=== PATIENT | female | born 1990 | race Caucasian/White ===

== ENCOUNTER 2021-10-12 07:29 | Emergency (ER) | payer BC | END 2021-10-12 08:23 | disposition home or self-care (01) | LOC: MW.ED 07:29 | DX: J02.0 Streptococcal pharyngitis (principal); Z87.891 Personal history of nicotine dependence; Z86.16 Personal history of COVID-19; Z79.899 Other long term (current) drug therapy; Z88.0 Allergy status to penicillin; Z88.1 Allergy status to other antibiotic agents; Z90.49 Acquired absence of other specified parts of digestive tract | CPT/HCPCS: 87651-QW; 99283 ==

== ENCOUNTER 2022-06-18 14:40 | Inpatient (IN) | payer BC ==
[2022-06-18] MEDS ORDERED: Tranexamic Acid 1,000 MG in Sodium Chloride 0.9% 100 ML IV PRN (14:55)
[2022-06-18] MEDS ORDERED: Butorphanol 1 MG/ML SDV IVPUSH PRN (14:55)
[2022-06-18] MEDS ORDERED: Water For Irrigation,Sterile 1,000 ML Container IRR PRN (14:55)
[2022-06-18] MEDS ORDERED: Methylergonovine 0.2 MG/1 ML Amp IM PRN (14:55)
[2022-06-18] MEDS ORDERED: Carboprost Tromethamine 250 MCG/1 ML Amp IM PRN (14:55)
[2022-06-18] MEDS ORDERED: Sodium Chloride 0.9% 10 ML Syringe FLUSH PRN (14:55)
[2022-06-18] MEDS ORDERED: Lidocaine 1% 50 ML MDV INJECT PRN (14:55)
[2022-06-18] MEDS ORDERED: Sodium Chloride 0.9% 2.5 ML Syringe FLUSH PRN (14:55)
[2022-06-18] MEDS ORDERED: Sodium Chloride 0.9% 20 ML SDV IV PRN (14:55)
[2022-06-18] MEDS ORDERED: Misoprostol 200 MCG Tab PO PRN (14:55)
[2022-06-18] MEDS ORDERED: Terbutaline 1 MG/ML SDV SUBCUT PRN (14:55)
[2022-06-18] MEDS ORDERED: Oxytocin/0.9 % Sodium Chloride 30 UNIT/500 ML BAG IV SCH ×2 (15:00)
[2022-06-18] MEDS ORDERED: Lactated Ringers 1,000 ML IV SCH (15:00)
[2022-06-18] MEDS ORDERED: Ropivacaine/PF 400 MG/200 ML PCA ONE (17:15)
[2022-06-18] MEDS ORDERED: ePHEDrine 50 MG/ML SDV IVPUSH PRN ×2 (17:23)
[2022-06-18] MEDS ORDERED: Phenylephrine HCl In 0.9% NaCl 1 MG/10 ML Vial IVPUSH PRN (17:23)
[2022-06-18] MEDS ORDERED: Ropivacaine HCl/PF 400 MG in Premix Bag 1 BAG EPIDUR SCH (17:30)
[2022-06-18] MEDS ORDERED: Phenylephrine HCl In 0.9% NaCl 1 MG/10 ML Vial IVPUSH SCH (17:30)
[2022-06-18] MEDS ORDERED: Docusate Sodium 100 MG Cap PO PRN (18:35)
[2022-06-18] MEDS ORDERED: oxyCODONE 5 MG Tab PO PRN (18:35)
[2022-06-18] MEDS ORDERED: Benzocaine/Menthol 20%-0.5% Spray 78 GM Cannister TOP PRN (18:35)
[2022-06-18] MEDS ORDERED: Acetaminophen 500 MG Tab PO PRN ×2 (18:35)
[2022-06-18] MEDS ORDERED: Ibuprofen 800 MG Tab PO PRN (18:35)
[2022-06-18] MEDS ORDERED: Witch Hazel Medicated Pads 40/Jar TOP PRN (18:35)
[2022-06-18] MEDS ORDERED: Lanolin 100% Cream 7 GM Tube TOP PRN (18:35)
[2022-06-18] MEDS ORDERED: Bisacodyl 10 MG Supp RECTAL PRN (18:35)
[2022-06-18] MEDS ORDERED: Ibuprofen 400 MG Tab PO PRN (18:35)
== END 2022-06-19 20:40 | disposition home or self-care (01) | DRG 560 ==
LOC: MW.OBCHECK 14:40 → MW.OB 14:41 → MW.OBCHECK 14:54 → MW.OB 14:55 → OBSVTOIN 18:10 → MW.OB 20:57
PROVIDERS: ADMIT Obstetrics & Gynecology; ATTEND Obstetrics & Gynecology
PROC: 10E0XZZ Delivery of Products of Conception, External Approach (ICD-10-PCS; principal; 2022-06-18)
PROC: 3E0R3BZ Introduction of Anesthetic Agent into Spinal Canal, Percutaneous Approach (ICD-10-PCS; 2022-06-18)
PROC: 00HU33Z Insertion of Infusion Device into Spinal Canal, Percutaneous Approach (ICD-10-PCS; 2022-06-18)
PROC: 10907ZC Drainage of Amniotic Fluid, Therapeutic from Products of Conception, Via Natural or Artificial Opening (ICD-10-PCS; 2022-06-18)
DX: O40.3XX0 Polyhydramnios, third trimester, not applicable or unspecified (principal); Z37.0 Single live birth; Z20.822 Contact with and (suspected) exposure to COVID-19; Z86.16 Personal history of COVID-19; Z90.49 Acquired absence of other specified parts of digestive tract; Z88.0 Allergy status to penicillin; Z88.1 Allergy status to other antibiotic agents; Z98.890 Other specified postprocedural states; Z87.891 Personal history of nicotine dependence; Z86.19 Personal history of other infectious and parasitic diseases; Z3A.39 39 weeks gestation of pregnancy
CPT/HCPCS: 36415; 59025; 59409; 82803; 85014; 85018; 85027; 86592; 86850; 86900; 86901; J2590; J2795; J7120; U0002